=== PATIENT | male | born 1995 | race Caucasian/White ===

== ENCOUNTER 2020-07-15 21:41 | Emergency (ER) | payer OTHER ==
[~2020-07-15] VITALS: Ht 175.2 cm; Wt 77.1 kg
[2020-07-15] MEDS ORDERED: fentaNYL INJECTION 100 MCG/2 ML AMP IVP STA (21:48)
--- NOTE | 2020-07-15 21:55 | ED Upper Extremity ---
General Chief Complaint: Upper Extremity Stated Complaint: LEFT SHOULDER INJURY History of Present Illness Date Seen by Provider: Jul 15, 2020 Time Seen by Provider: 21:45 Initial Comments 25-year-old male brought in by EMS. 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 He got thrown and when he landed dislocated his left shoulder. He presents with obvious dislocation. He initially has some mild tingling and numbness in his fingers that has resolved. He denies any other injury. He has no previous shoulder dislocation. Allergies and Home Medications Allergies Coded Allergies: No Known Drug Allergies (Unverified , 07/15/20) Patient Home Medication List Home Medication List Reviewed: Yes Review of Systems Constitutional: no symptoms reported EENTM: no symptoms reported Respiratory: no symptoms reported Cardiovascular: no symptoms reported Gastrointestinal: no symptoms reported Genitourinary: no symptoms reported Musculoskeletal: see HPI Skin: no symptoms reported Psychiatric/Neurological: No Symptoms Reported Past Afammmq-Gopoou-Vyaata Hx Past Med/Social Hx: Reviewed Nursing Past Med/Soc Hx Physical Exam Vital Signs Vital Signs - First Documented 07/15/20 21:41 Temp 37.0 Pulse 78 Resp 18 B/P (MAP) 117/61 (79) Pulse Ox 96 O2 Delivery Room Air Capillary Refill : Height, Weight, BMI Height: '" Weight: lbs. oz. kg; BMI Method: General Appearance: moderate distress Neck: full range of motion, supple Cardiovascular: normal peripheral pulses (Good distal pulses, 2+), regular rate, rhythm Respiratory: lungs clear, normal breath sounds Gastrointestinal: non tender, soft Shoulder: deformity (Obvious dislocation), limited ROM Elbow/Forearm: normal inspection Wrist: Yes normal inspection Hand: normal inspection Neurologic/Tendon: normal sensation Neurologic/Psychiatric: alert, normal mood/affect, oriented x 3 Skin: normal color, warm/dry Procedures/Interventions Patient Education: Explained Benefits Agreement on procedure with pt: Yes Breath Sounds per Auscultation: Clear Heart Sounds per Auscultation: Regular Airway Exam: Mouth opens >2 fingers, Neck Full Range of Motion, Visulation of Uvula Sedation Adminstration Time: 22:15 Patient with good vital signs throughout. No complications. Tolerated well Re-examination Time: 22:25 Splinting and Joint Reduction : Pre-Proc Neuro Vasc Exam: normal Post-Proc Neuro Vasc Exam: normal Joint Reduction Site: shoulder (L) Pre-Procedure NV Exam: Yes post joint reduction film: joint reduced Progress Patient tolerated well with no complications Immobilizers: Medium Shoulder Progress/Results/Core Measures Results/Orders My Orders Orders - TANIKA MARTI DO Ketamine Injection (Ketalar Injection) (07/15/20 22:00) Fentanyl Injection (Sublimaze Injection (07/15/20 21:48) Shoulder 3 View Left (07/15/20 21:48) Shoulder Immoblizer (07/15/20 22:24) Shoulder 1 View Left (07/15/20 22:24) Hand 2 View Left (07/15/20 22:29) Medications Given in ED Current Medications Medications Dose Ordered Sig/Macho Route Start Time Stop Time Status Last Admin Dose Admin Ketamine HCl 80 mg ONCE ONCE IV 07/15/20 22:00 07/15/20 22:01 DC 07/15/20 22:13 80 MG Vital Signs/I&O 07/15/20 21:41 Temp 37.0 Pulse 78 Resp 18 B/P (MAP) 117/61 (79) Pulse Ox 96 O2 Delivery Room Air Diagnostic Imaging Plain Films/CT/US/NM/MRI: other Comments Left shoulder anterior dislocation with associated fracture Reviewed: Reviewed by Me, Reviewed/Discussed Diagonstic Imaging: Xray Plain Films/CT/US/NM/MRI: other Comments Reduction of left shoulder Reviewed: Reviewed by Me Departure Impression Primary Impression: Dislocation, shoulder, anterior Qualified Codes: S43.015A - Anterior dislocation of left humerus, initial encounter Disposition: 01 HOME, SELF-CARE Condition: Stable Departure-Patient Inst. Referrals: NO,LOCAL PHYSICIAN (PCP/Family) Primary Care Physician Patient Instructions: Shoulder Dislocation (DC) Add. Discharge Instructions: Wear shoulder immobilizer until cleared by orthopedic surgeon Call orthopedic surgeon on Friday morning when you are back to [facility] to arrange for a follow-up next week No further bull riding until cleared by orthopedic surgeon Tylenol or ibuprofen as needed All discharge instructions reviewed with patient and/or family. Voiced understanding. TANIKA MARTI DO Jul 15, 2020 21:54
[2020-07-15] MEDS ORDERED: KETAMINE HCL 100 MG/ML 5 ML VIAL IV ONE (22:00)
[2020-07-15 23:30] VITALS: BP 149/95
--- NOTE | 2020-07-16 07:30 | Diagnostic Imaging Report ---
INDICATION: Left shoulder dislocation. Time of exam: 9:52 PM Multiple views of the left shoulder demonstrate an anterior shoulder dislocation. There is a fracture of the proximal humerus in the region of the greater tuberosity. Acromioclavicular alignment is normal. No other fractures are seen. IMPRESSION: Anterior shoulder dislocation with fracture of the proximal humerus involving the greater tuberosity. Dictated by: Dictated on workstation # [id number]
--- NOTE | 2020-07-16 07:32 | Diagnostic Imaging Report ---
INDICATION: Postreduction left shoulder. Time of exam: 10:22 PM Correlation with plain radiographs earlier the same day. Single view of the left shoulder demonstrates a normal glenohumeral and acromioclavicular alignment. There has been reduction of the anterior shoulder dislocation. Fracture of the greater tuberosity is again noted. IMPRESSION: Reduction of anterior shoulder dislocation. Dictated by: Dictated on workstation # [id number]
--- NOTE | 2020-07-16 07:33 | Diagnostic Imaging Report ---
INDICATION: Injury to left hand. Time of exam: 10:24 PM 3 views of the left hand were obtained. Alignment is normal. Metacarpals are intact. Phalanges are intact. No fractures are seen. Carpus is unremarkable. IMPRESSION: No acute bony abnormality is detected. Dictated by: Dictated on workstation # [id number]
== END 2020-07-15 23:30 | disposition home or self-care (01) ==
LOC: ER FS 21:50
DX: S43.015A Anterior dislocation of left humerus, initial encounter (principal); W55.29XA Other contact with cow, initial encounter
CPT/HCPCS: 23655; 73020; 73030; 73120; 93041